=== PATIENT | female | born 1955 | race Caucasian/White ===

== ENCOUNTER 2018-06-13 15:35 | Outpatient (CLI) | payer BC | END 2018-06-13 15:36 | disposition home or self-care (01) | LOC: BICMAMMO 15:35 | PROVIDERS: ATTEND Family Medicine | DX: Z12.31 Encounter for screening mammogram for malignant neoplasm of breast (principal); R92.1 Mammographic calcification found on diagnostic imaging of breast; Z80.3 Family history of malignant neoplasm of breast | CPT/HCPCS: 77063; 77067 ==

== ENCOUNTER 2020-10-16 13:15 | Outpatient (CLI) | payer OTHER ==
--- NOTE | 2020-10-16 14:11 | RAD ---
EXAM: Two views chest PROVIDED CLINICAL HISTORY: History of Covid, cough COMPARISON: None FINDINGS: Cardiac and mediastinal silhouette appears within normal limits. Lungs appear free of significant opa city. No pleural fluid or pneumothorax apparent. IMPRESSION: No evidence for an acute cardiopulmonary process.
== END 2020-10-16 13:16 | disposition home or self-care (01) ==
LOC: BICRAD 13:15
PROVIDERS: ATTEND Family Medicine
DX: R05 Cough (principal); Z86.16 Personal history of COVID-19
CPT/HCPCS: 71046